=== PATIENT | male | born 1940 | race Caucasian/White ===

== ENCOUNTER → 2018-09-12 | Emergency (ER) | payer OTHER ==
[~2018-09-12] VITALS: Ht 170.2 cm; Wt 63.0 kg
[~2018-09-12] MED LIST: PRINIVIL5 MG; RESTORIL30 M1 PO; SIMVASTATIN5 MG; XANAX1 MG
== END | disposition home or self-care (01) ==
LOC: ER 21:47
DX: R41.0 Disorientation, unspecified (principal); T42.4X5A Adverse effect of benzodiazepines, initial encounter; Y92.89 Other specified places as the place of occurrence of the external cause